=== PATIENT | male | born 1985 | race Caucasian/White ===

== ENCOUNTER 2020-01-31 10:03 | Inpatient (IN) | payer OTHER, SELFPAY ==
[~2020-01-31] VITALS: Ht 172.7 cm; Wt 92.1 kg
[2020-01-31 10:07] VITALS: Ht 172.7 cm; Wt 92.1 kg
[2020-01-31 11:51] LABS: BASOPHIL % 0.6 % (0-2); PLATELET COUNT 241 x10^3mcL (130-400); RED CELL DISTRIBUTION WIDTH 13.3 % (11.5-14.5)
[2020-01-31 12:05] LABS: CALCIUM 8.5 mg/dL (8.5-10.1); CARBON DIOXIDE 26.8 mmol/L (21-32); CHLORIDE SERUM 102 mmol/L (98-107); CREATININE SERUM 0.8 mg/dL (0.7-1.3); GFR1 > 60 mL/min; GLUCOSE SERUM 105 mg/dL (74-106); POTASSIUM SERUM 3.7 mmol/L (3.5-5.1); SODIUM SERUM 138 mmol/L (136-145)
[2020-01-31 12:15] LABS: ALBUMIN 3.4 g/dL (3.4-5.0); ALKALINE PHOSPHATASE 133 U/L (46-116); ALT/SGPT 79 U/L (16-63); AST/SGOT 51 U/L (15-37); BILIRUBIN TOTAL 0.41 mg/dL (0.20-1.00); C REACTIVE PROTEIN 11.1 mg/dL (<=0.9); LACTIC DEHYDROGENASE (LDH) 284 U/L (100-190); TOTAL PROTEIN, SERUM 7.7 g/dL (6.4-8.2)
[2020-01-31 13:01] LABS: microscopic required? YES; urine erythrocyte 2+ (NEGATIVE)
[2020-01-31 14:03] VITALS: BP 105/64
[2020-02-01 06:22] VITALS: BP 104/63
[2020-02-01 06:33] LABS: BASOPHIL % 0.1 % (0-2); PLATELET COUNT 255 x10^3mcL (130-400); RED CELL DISTRIBUTION WIDTH 13.2 % (11.5-14.5)
[2020-02-01 06:58] LABS: CALCIUM 8.5 mg/dL (8.5-10.1); CARBON DIOXIDE 27.8 mmol/L (21-32); CHLORIDE SERUM 103 mmol/L (98-107); CREATININE SERUM 0.8 mg/dL (0.7-1.3); GFR1 > 60 mL/min; GLUCOSE SERUM 89 mg/dL (74-106); POTASSIUM SERUM 3.8 mmol/L (3.5-5.1); SODIUM SERUM 139 mmol/L (136-145)
[2020-02-01 09:10] VITALS: BP 102/64
[2020-02-01 09:42] VITALS: BP 104/63
[2020-02-01 17:59] VITALS: BP 105/60
[2020-02-01 19:35] VITALS: BP 116/45
[2020-02-02 05:12] VITALS: BP 93/64
[2020-02-02 06:26] LABS: BASOPHIL % 0.4 % (0-2); PLATELET COUNT 298 x10^3mcL (130-400); RED CELL DISTRIBUTION WIDTH 13.7 % (11.5-14.5)
[2020-02-02 06:31] LABS: CALCIUM 8.9 mg/dL (8.5-10.1); CARBON DIOXIDE 28.3 mmol/L (21-32); CHLORIDE SERUM 105 mmol/L (98-107); CREATININE SERUM 0.7 mg/dL (0.7-1.3); GFR1 > 60 mL/min; GLUCOSE SERUM 95 mg/dL (74-106); POTASSIUM SERUM 4.1 mmol/L (3.5-5.1); SODIUM SERUM 141 mmol/L (136-145)
[2020-02-02 08:30] VITALS: BP 107/70
[2020-02-02 12:45] VITALS: BP 117/70
[2020-02-02 17:26] VITALS: BP 99/68
[2020-02-02 19:25] VITALS: BP 101/71
[2020-02-03 05:43] VITALS: BP 100/69
[2020-02-03 07:00] VITALS: BP 97/64
[2020-02-03 07:04] LABS: CALCIUM 9.1 mg/dL (8.5-10.1); CARBON DIOXIDE 28.9 mmol/L (21-32); CHLORIDE SERUM 106 mmol/L (98-107); GLUCOSE SERUM 94 mg/dL (74-106); POTASSIUM SERUM 4.8 mmol/L (3.5-5.1); SODIUM SERUM 142 mmol/L (136-145)
[2020-02-03 07:05] LABS: BASOPHIL % 0.3 % (0-2); PLATELET COUNT 323 x10^3mcL (130-400); RED CELL DISTRIBUTION WIDTH 13.7 % (11.5-14.5)
[2020-02-03 07:24] LABS: CREATININE SERUM 0.7 mg/dL (0.7-1.3); GFR1 > 60 mL/min
[2020-02-03 12:30] VITALS: BP 102/71
[2020-02-03 17:30] VITALS: BP 107/71
[2020-02-03 21:00] VITALS: BP 106/69
[2020-02-04 06:15] VITALS: BP 102/71
[2020-02-04 07:00] VITALS: BP 102/69
[2020-02-04 10:02] VITALS: BP 102/71
[2020-02-04 11:59] VITALS: BP 102/69
== END 2020-02-04 15:30 | disposition home or self-care (01) | DRG 177 ==
LOC: ED 10:03 → DU 12:22
PROVIDERS: Emergency Medicine; ADMIT Family Medicine
DX: U07.1 COVID-19 (principal); J96.01 Acute respiratory failure with hypoxia; J12.89 Other viral pneumonia
CPT/HCPCS: 36600; 83880; 85378; 87804; 94150; G0378; J0456; J0696; J7030; J7050; J7060; Q0092